=== PATIENT | male | born 1960 | race Caucasian/White ===

== ENCOUNTER 2017-05-08 16:49 | Emergency (ER) | payer BC ==
[2017-05-08] MEDS ORDERED: Sodium Chloride 0.9% 10 ML Syringe FLUSH PRN (16:50)
[2017-05-08] MEDS ORDERED: HYDROmorphone 1 MG/ML Syringe IVPUSH ONE (16:59)
[2017-05-08] MEDS ORDERED: Lactated Ringers 1,000 ML IV SCH (17:00)
--- NOTE | 2017-05-08 17:03 | EDM.PDOC ---
ED HPI GENERAL MEDICAL PROBLEM - General Chief Complaint: Lower Extremity Injury/Pain Stated Complaint: FALL BACK INJURY Time Seen by Provider: 05/08/17 16:50 Source of Information: Reports: Patient, Other (Coworker) History Limitations: Reports: No Limitations - History of Present Illness INITIAL COMMENTS - FREE TEXT/NARRATIVE: The patient was on a ladder working on an electrical wire. He got shocked and fell off of the ladder and landed on his right hip and pelvis. He says he did not hit his head or hurt his neck. He was helped to a pickup truck by his coworker and he was brought in to our garage. I went with the some nurses to help get him out of the pickup. I was helping him get out of the seat. He said he had more pain and then he passed out. We we able to get him on to the cot. He denies a headache, neck pain, chest or abdominal pain. He has pain to the posterior hip and pelvis. He has no numbness or weakness. Onset: Sudden Duration: Minutes: Location: Reports: Back (lower right), Lower Extremity, Right (hip and pelvis) Quality: Reports: Sharp Severity: Severe Improves with: Reports: Immobilization Worsens with: Reports: Movement Context: Reports: Trauma (He got shocked by a wire and fell off a ladder) Associated Symptoms: Reports: No Other Symptoms right buttock/hip Pain Score (Numeric/FACES): 2 - Related Data Allergies Allergy/AdvReac Type Severity Reaction Status Date / Time Penicillins Allergy Anaphylactic Verified 05/08/17 16:58 Shock Home Meds: Home Meds Melatonin 5 mg PO BEDTIME 05/08/17 [History] Rosuvastatin Calcium [Crestor] 40 mg PO DAILY 05/08/17 [History] Sertraline [Zoloft] 100 mg PO DAILY 05/08/17 [History] Review of Systems - Review of Systems Review Of Systems: See Below Constitutional: Reports: No Symptoms Eyes: Reports: No Symptoms Ears: Reports: No Symptoms Nose: Reports: No Symptoms Respiratory: Reports: No Symptoms Cardiovascular: Reports: Syncope GI/Abdominal: Reports: No Symptoms Genitourinary: Reports: No Symptoms Musculoskeletal: Reports: Other (Right hip, low back and pelvic pain) Skin: Reports: No Symptoms Neurological: Reports: No Symptoms ED EXAM, GENERAL - Physical Exam Exam: See Below Exam Limited By: No Limitations General Appearance: Alert, No Apparent Distress Ears: Normal External Exam Nose: Normal Inspection Head: Atraumatic, Normocephalic Neck: Normal Inspection Respiratory/Chest: No Respiratory Distress, Lungs Clear, Normal Breath Sounds Cardiovascular: Regular Rate, Rhythm, No Edema, No Murmur GI/Abdominal: Soft, Non-Tender, No Organomegaly, No Mass Back Exam: Other (Pain upon palpation to the right lower back) Extremities: Other (Right hip and pelvic pain upon palpation. Good sensation and pulses distally. Edema to the right hip and buttock. The patient has bilateral decreased pulses to both legs. I had to use a doplar to get pulses in her feet. Capillary refill is 5 seconds. He has decreased sensation to some toes in the right foot. He says this is an old injury.) EKG INTERPRETATION EKG Date: 05/08/17 Time: 17:11 Rhythm: NSR Rate (Beats/Min): 73 [place]: Normal P-Wave: Present QRS: Normal ST-T: Normal QT: Normal Course - Vital Signs Last Recorded V/S: Last Vital Signs Temp 96 F 05/08/17 16:49 Pulse 75 05/08/17 16:49 Resp 18 05/08/17 16:49 BP 148/85 H 05/08/17 16:49 Pulse Ox 95 05/08/17 16:49 - Orders/Labs/Meds Orders: Active Orders 24 hr Category Date Time Status Cardiac Monitoring [RC] . DIRECTED Care 05/08/17 16:50 Active EKG Documentation Completion [RC] STAT Care 05/08/17 16:52 Active Peripheral IV Care [RC] . DIRECTED Care 05/08/17 16:52 Active Abdomen Pelvis w Cont [CT] Stat Exams 05/08/17 16:53 Taken Chest 1V Frontal [CR] Stat Exams 05/08/17 16:52 Taken Head wo Cont [CT] Stat Exams 05/08/17 16:59 Taken Lumbar Spine wo Cont [CT] Stat Exams 05/08/17 16:54 Taken Lactated Ringers [Ringers, Lactated] 1,000 ml Med 05/08/17 17:00 Active IV ASDIRECTED Sodium Chloride 0.9% [Saline Flush] Med 05/08/17 16:50 Active 10 ml FLUSH ASDIRECTED PRN Peripheral IV Insertion Adult [OM.PC] Stat Oth 05/08/17 16:50 Ordered Medication Orders Lactated Ringer's (Ringers, Lactated) 1,000 mls @ 125 mls/hr IV ASDIRECTED [place] Last Admin: 05/08/17 17:05 Dose: 125 mls/hr Sodium Chloride (Saline Flush) 10 ml FLUSH ASDIRECTED PRN PRN Reason: Keep Vein Open Last Admin: 05/08/17 17:05 Dose: 10 ml Labs: Laboratory Tests 05/08/17 05/08/17 05/08/17 Range/Units 16:50 17:19 18:49 WBC 9.72 H (4.23-9.07) K/mm3 RBC 4.33 L (4.63-6.08) M/mm3 Hgb 12.9 L (13.7-17.5) gm/L Hct 38.4 L (40.1-51.0) % MCV 88.7 (79.0-92.2) fl MCH 29.8 (25.7-32.2) pg MCHC 33.6 (32.2-35.5) g/dl RDW Std Deviation 41.7 (35.1-43.9) fL Plt Count 267 (163-337) K/mm3 MPV 10.6 (9.4-12.3) fl Neut % (Auto) 73.9 H (34.0-67.9) % Lymph % (Auto) 16.5 L (21.8-53.1) % [place] % (Auto) 7.2 (5.3-12.2) % Eos % (Auto) 1.5 (0.8-7.0) Baso % (Auto) 0.6 (0.1-1.2) % Neut # (Auto) 7.18 H (1.78-5.38) K/mm3 Lymph # (Auto) 1.60 (1.32-3.57) K/mm3 [place] # (Auto) 0.70 (0.30-0.82) K/mm3 Eos # (Auto) 0.15 (0.04-0.54) K/mm3 Baso # (Auto) 0.06 (0.01-0.08) K/mm3 Sodium 140 (136-145) mEq/L Potassium 3.5 (3.5-5.1) mEq/L Chloride 104 (98-107) mEq/L Carbon Dioxide 24 (21-32) mEq/L Anion Gap 15.5 H (5-15) BUN 19 H (7-18) mg/dL Creatinine 1.1 (0.7-1.3) mg/dL Est Cr Clr Drug Dosing 82.72 mL/min Estimated GFR (MDRD) > 60 (>60) mL/min BUN/Creatinine Ratio 17.3 (14-18) Glucose 115 H (74-106) mg/dL Calcium 8.5 (8.5-10.1) mg/dL Total Bilirubin 0.3 (0.2-1.0) mg/dL AST 52 H (15-37) U/L ALT 65 H (16-63) U/L Alkaline Phosphatase 54 (46-116) U/L Troponin I < 0.017 (0.00-0.056) ng/mL Total Protein 6.6 (6.4-8.2) g/dl Albumin 3.5 (3.4-5.0) g/dl Globulin 3.1 gm/dL Albumin/Globulin Ratio 1.1 (1-2) Urine Color Yellow (Yellow) Urine Appearance Clear (Clear) Urine pH 5.5 (5.0-8.0) Ur Specific [place] 1.010 (1.005-1.030) Urine Protein Negative (Negative) Urine Glucose (UA) Negative (Negative) Urine Ketones Negative (Negative) Urine Occult Blood Trace-lysed H (Negative) Urine Nitrite Negative (Negative) Urine Bilirubin Negative (Negative) Urine Urobilinogen 0.2 (0.2-1.0) Ur Leukocyte Esterase Negative (Negative) Urine RBC 0-5 (0-5) /hpf Urine WBC 0-5 (0-5) /hpf Ur Epithelial Cells 0-5 (0-5) /hpf Urine Bacteria Few (FEW) /hpf Fine Granular Casts 0-5 (0-5) /lpf Urine Mucus Few (FEW) /hpf Ethyl Alcohol 0.03 (0.00) gm% Meds: Medications Generic Name Dose Route Start Last Admin Trade Name Freq PRN Reason Stop Dose Admin Lactated Ringer's 1,000 mls @ 125 mls/hr 05/08/17 17:00 05/08/17 17:05 Ringers, Lactated IV 125 mls/hr ASDIRECTED [place] Administration Sodium Chloride 10 ml 05/08/17 16:50 05/08/17 17:05 Saline Flush FLUSH 10 ml ASDIRECTED PRN Administration Keep Vein Open Discontinued Medications Generic Name Dose Route Start Last Admin Trade Name Jewelq PRN Reason Stop Dose Admin Hydromorphone HCl 1 mg 05/08/17 16:59 05/08/17 17:05 Dilaudid IVPUSH 05/08/17 17:00 1 mg ONETIME ONE Administration Iopamidol 100 ml 05/08/17 17:41 05/08/17 17:45 Isovue-300 (61%) IVPUSH 05/08/17 17:42 100 ml ONETIME ONE Administration Sodium Chloride 10 ml 05/08/17 17:41 05/08/17 17:45 Saline Flush FLUSH 05/08/17 17:42 10 ml ONETIME ONE Administration - Re-Assessments/Exams Free Text/Narrative Re-Assessment/Exam: 05/08/17 17:05 I ordered an IV LR at 125mL/hr, dilaudid IV, labs, CXR and a CT of his lumbar spine, abdomen, pelvis and head. I will also get an EKG and have him on the claim rep because he did get electrocuted. 05/08/17 19:02 His EKG shows a NSR with no acute changes. His CXR shows nothing acute. His WBC was elevated at 9.72. His Hgb was elevated at 12.9. His AST and ALT are elevated at 52 and 65 respectively. His troponin is negative. His ETOH was slightly elevated at 0.03. The CT of his head shows nonspecific fluid within the ethmoid and frontal sinuses. No acute intracranial hemorrhage. The CT fo his lumber spine shows mild compression of the L1 vertebrae and and right transverse process fracture at L1. Bilateral L5 spondylolysis with associated L5/s1 shunt disease. Deep left pelvic sidewall hematoma, incompletely evaluated. The CT of his abdomen and pelvis shows extraperitoneal fluid within the space of [place] on the left without clear pelvic fracture. This raises concern for extraperitoneal bladder or urethral injury. Mild compression fracture of the L1 vertebral body and right transverse fracture at L1. AV shunting within the liver and associated transient hepatic attenuation difference. 1.8 x 1.7cm abdomen enhancing lesion in the left hepatic lobe which could represent a flash filled hemangioma however consider elective triphasic CT or MRI to better evaluate these findings. The patient did urinate for me. I will look at the UA. I have also ordered a delayed CT of the pelvis to see if any contrast has leaked from the bladder. 05/08/17 19:[address] or the pelvis with delayed images shows a small focus of extavasation of contrast in the prostate on the left raising concern for injury to the prostatic urethra. I feel he needs to be transferred to [place] where they have a urologist. I called [facility] and talked with Dr Cyr and he accepted the patient. I also talked with the urologist and he thought he may have to put a catheter in tonight. I will transfer him by ambulance. Departure - Departure Time of Disposition: 20:20 Disposition: DC/Tfer to [facility] 02 Clinical Impression: Injury of prostatic urethra Fall Qualifiers: Encounter type: initial encounter Qualified Code(s): W19.XXXA - Unspecified fall, initial encounter Contusion of right hip Qualifiers: Encounter type: initial encounter Qualified Code(s): S70.01XA - Contusion of right hip, initial encounter Contusion, buttock Qualifiers: Encounter type: initial encounter Qualified Code(s): S30.0XXA - Contusion of lower back and pelvis, initial encounter Compression fracture of L1 lumbar vertebra Qualifiers: Encounter type: initial encounter Fracture type: closed Qualified Code(s): S32.010A - Wedge compression fracture of first lumbar vertebra, initial encounter for closed fracture Lumbar transverse process fracture Qualifiers: Encounter type: initial encounter Fracture type: closed Qualified Code(s): S32.009A - Unspecified fracture of unspecified lumbar vertebra, initial encounter for closed fracture Electric shock Qualifiers: Encounter type: initial encounter Qualified Code(s): T75.4XXA - Electrocution, initial encounter - Discharge Information Referrals: PCP,Unknown [Ordering Only Provider] - Forms: ED Department Discharge - My Orders Last 24 Hours: My Active Orders 05/08/17 16:50 Cardiac Monitoring [RC] . DIRECTED Sodium Chloride 0.9% [Saline Flush] 10 ml FLUSH ASDIRECTED PRN Peripheral IV Insertion Adult [OM.PC] Stat 05/08/17 16:52 EKG Documentation Completion [RC] STAT Peripheral IV Care [RC] . DIRECTED Chest 1V Frontal [CR] Stat 05/08/17 16:53 Abdomen Pelvis w Cont [CT] Stat 05/08/17 16:54 Lumbar Spine wo Cont [CT] Stat 05/08/17 16:59 Head wo Cont [CT] Stat 05/08/17 17:00 Lactated Ringers [Ringers, Lactated] 1,000 ml IV ASDIRECTED - Assessment/Plan Last 24 Hours: My Active Orders 05/08/17 16:50 Cardiac Monitoring [RC] . DIRECTED Sodium Chloride 0.9% [Saline Flush] 10 ml FLUSH ASDIRECTED PRN Peripheral IV Insertion Adult [OM.PC] Stat 05/08/17 16:52 EKG Documentation Completion [RC] STAT Peripheral IV Care [RC] . DIRECTED Chest 1V Frontal [CR] Stat 05/08/17 16:53 Abdomen Pelvis w Cont [CT] Stat 05/08/17 16:54 Lumbar Spine wo Cont [CT] Stat 05/08/17 16:59 Head wo Cont [CT] Stat 05/08/17 17:00 Lactated Ringers [Ringers, Lactated] 1,000 ml IV ASDIRECTED
[2017-05-08] MEDS ORDERED: Sodium Chloride 0.9% 10 ML Syringe FLUSH ONE (17:41)
[2017-05-08] MEDS ORDERED: Iopamidol 612 MG/ML 100 ML Bottle IVPUSH ONE (17:41)
--- NOTE | 2017-05-10 09:23 | CT ---
CT lumbar spine Technique: Multiple axial sections were obtained from the bottom of T6 inferiorly through the sacrum. Reconstructed sagittal and coronal images were reviewed. Findings: L1-L2: Mild wedging of the superior endplate of L1 is seen which appears to be acute. Fracture involves the superior endplate. Fracture does not extend to the posterior vertebral line or into the posterior elements. No additional fracture is seen. Scattered degenerative change within the spine is seen most severe at L5-S1 with severe disc space narrowing and vacuum phenomena and endplate sclerosis. Bilateral spondylolytic defects at L5-S1 causes spondylolisthesis by about 5-6 mm. Impression: 1. Superior endplate compression fracture within L1. Fracture does not extend into the posterior elements or posterior vertebral line. 2. Degenerative change as noted above. Diagnostic code #5 I agree with preliminary report issued by [facility] ([facility] report finalized on 05/08/17, 7:05 PM Central Time)
--- NOTE | 2017-05-10 09:23 | CT ---
CT abdomen and pelvis Technique: Multiple axial sections were obtained from above the dome of the diaphragm inferiorly to the pubic symphysis. Intravenous contrast was utilized. No oral contrast has been given. Delayed images were also obtained through the abdomen and pelvis as well as delayed images through the pelvis at 1 hour. Comparison: No previous CT abdomen or pelvis exam. Findings: There is an area of hyperintense enhancement being seen within the right lobe of the liver. This is likely normal variant. Liver shows mild fatty infiltration. No other focal abnormality is seen within the liver. Spleen appears within normal limits. Adrenal glands show no nodule. Pancreas is within normal limits. Gallbladder contains no calcified gallstones. Kidneys show symmetric contrast enhancement without hydronephrosis or mass. Aorta shows no aneurysmal dilatation. No retroperitoneal adenopathy or mesenteric abnormalities are seen. Soft tissue density is seen within the lower pelvis compatible with hematoma. This appears along the left side of the lower bladder and left side of the prostate gland. Several prostrate calcifications are seen. Delayed images at one hour show slight contrast extravasation to the left side of the prostate gland adjacent to the calcifications. This finding is suggestive of prostatic urethral injury. No other areas of extravasation are seen on delayed images. Contrast within both ureters is seen which appears normal. Bone window settings were reviewed which show superior endplate compression fracture within L1. Degenerative change is seen at L5-S1 with chronic spondylolytic defects. No fracture identified within the pubic rami. No pelvis fracture is seen. Impression: 1. Soft tissue density around the lower bladder floor and prostate gland on the left side which is compatible with hematoma. 2. Small amount of apparent contrast extravasation to the left side of the prostate gland seen on one hour delayed images. Findings are suspicious for injury of the prostatic urethra. 3. Mild compression fracture involving the superior L1 vertebral body. 4. Hyperenhancing area within the right lobe of the liver which is most likely a normal variant. Fatty infiltration seen within the liver. Diagnostic code #5 I agree with preliminary report issued by [facility] ([facility] report finalized on 05/08/17, 7:23 PM Central Time)
--- NOTE | 2017-05-10 09:23 | CT ---
Head CT Technique: Multiple axial sections through the brain were obtained. Intravenous contrast was not utilized. Comparison: Prior MRI brain of 04/28/13 is available. Findings: Ventricles along with basal cisterns and sulci over the convexities are within normal limits. No abnormal parenchymal densities are seen. No evidence of intracranial hemorrhage. No midline shift or mass effect is seen. Bone window settings were reviewed which show mild mucosal thickening within the frontal and ethmoid sinuses. Minimal mucosal thickening is seen within the left maxillary sinus. No acute calvarial abnormality is seen. Impression: 1. Sinus disease which is felt to be pre-existing and incidental. 2. No acute intracranial abnormality is identified. Diagnostic code #2 I agree with preliminary report issued by [facility] ([facility] report finalized on 05/08/17, 7:05 PM Central Time)
--- NOTE | 2017-05-10 09:23 | CR ---
Chest: Portable view of the chest was obtained. Comparison: No prior study. Heart size and mediastinum are normal. Lungs are clear. Bony structures are grossly intact. Impression: 1. Nothing acute is identified on portable chest x-ray. Diagnostic code #1
== END 2017-05-08 20:43 ==
LOC: JD.ED 16:49
DX: S32.010A Wedge compression fracture of first lumbar vertebra, initial encounter for closed fracture (principal); S32.019A Unspecified fracture of first lumbar vertebra, initial encounter for closed fracture; S37.30XA Unspecified injury of urethra, initial encounter; S70.01XA Contusion of right hip, initial encounter; S30.0XXA Contusion of lower back and pelvis, initial encounter; Z88.0 Allergy status to penicillin; Z79.899 Other long term (current) drug therapy; W86.8XXA Exposure to other electric current, initial encounter; W11.XXXA Fall on and from ladder, initial encounter
CPT/HCPCS: 36415; 70450; 71010; 72131; 74177; 80053; 81001; 84484; 85025; 93005; 96361; 96374; 99285; G0480; J1170; J7050; J7120; Q9967; 99284

== ENCOUNTER 2017-05-13 08:20 | Emergency (ER) | payer BC ==
--- NOTE | 2017-05-13 09:06 | EDM.PDOC ---
ED HPI GENERAL MEDICAL PROBLEM - General Chief Complaint: Genitourinary Problem Stated Complaint: CATHETER PAIN Time Seen by Provider: 05/13/17 08:40 Source of Information: Reports: Patient, Family History Limitations: Reports: No Limitations - History of Present Illness INITIAL COMMENTS - FREE TEXT/NARRATIVE: The patient presents with pain from his hu catheter. The patient was seen here on the 08 of May for a fall that resulted in no pelvic fracture but he did have a tear of the urethra at the level of the prostate. He was sent to [facility] for further care. A hu catheter was inserted by the urologist cotton classer aide Dr Flores. He was discharged yesterday. He had no problems with the catheter until he was getting ready to leave and his nurse had to put a leg bag on. He started having pain in his penis and deeper inside. He has continued to have pain. He is still having good drainage of urine. There has been some dried blood at the urethral meatus. He has no fever or chills. Onset: Gradual Duration: Day(s): (Yesterday) Location: Reports: Other (Penis and pelvis) Quality: Reports: Sharp Severity: Moderate Improves with: Reports: None Worsens with: Reports: Movement Context: Reports: Trauma (Fell off of the ladder) Associated Symptoms: Reports: No Other Symptoms Penis Pain Score (Numeric/FACES): 5 - Related Data Allergies Allergy/AdvReac Type Severity Reaction Status Date / Time Penicillins Allergy Anaphylactic Verified 05/13/17 08:39 Shock Home Meds: Home Meds Melatonin 5 mg PO BEDTIME 05/08/17 [History] Rosuvastatin Calcium [Crestor] 40 mg PO DAILY 05/08/17 [History] Sertraline [Zoloft] 100 mg PO DAILY 05/08/17 [History] Phenazopyridine [Pyridium] 100 mg PO TID PRN #6 tablet 05/13/17 [Rx] Past Medical History HEENT History: Reports: Impaired Vision Cardiovascular History: Reports: High Cholesterol Psychiatric History: Reports: Panic Attack - Past Surgical History Musculoskeletal Surgical History: Reports: Ganglion Cyst Social & Family History - Family History Family Medical History: Noncontributory - Tobacco Use Smoking Status *Q: Former Smoker Used Tobacco, but Quit: Yes Month Tobacco Last Used: unknown Second Hand Smoke Exposure: No - Caffeine Use Caffeine Use: Reports: Coffee - Recreational Drug Use Recreational Drug Use: No ED ROS GENERAL - Review of Systems Review Of Systems: See Below Constitutional: Reports: No Symptoms HEENT: Reports: No Symptoms Respiratory: Reports: No Symptoms Cardiovascular: Reports: No Symptoms Endocrine: Reports: No Symptoms GI/Abdominal: Reports: No Symptoms : Reports: Other (Hu cath in place with pain) Musculoskeletal: Reports: No Symptoms ED EXAM, RENAL/ - Physical Exam Exam: See Below Exam Limited By: No Limitations General Appearance: Alert, No Apparent Distress Ears: Normal External Exam Nose: Normal Inspection Head: Atraumatic, Normocephalic Neck: Normal Inspection Respiratory/Chest: No Respiratory Distress GI/Abdominal: Soft, Non-Tender, No Organomegaly, No Mass (Male) Exam: Other (Hu cath in place with some dried blood at the end of his penis. Good flow of urine.) Course - Vital Signs Last Recorded V/S: Last Vital Signs Temp 97.6 F 05/13/17 08:33 Pulse 67 05/13/17 08:33 Resp 12 05/13/17 08:33 BP 147/85 H 05/13/17 08:33 Pulse Ox 100 05/13/17 08:33 - Orders/Labs/Meds Orders: Active Orders 24 hr Category Date Time Status CULTURE URINE [RM] Stat Lab 05/13/17 09:00 Received Labs: Laboratory Tests 05/13/17 Range/Units 09:00 Urine Color Dark yellow (Yellow) Urine Appearance Clear (Clear) Urine pH 7.0 (5.0-8.0) Ur Specific [place] 1.020 (1.005-1.030) Urine Protein Trace H (Negative) Urine Glucose (UA) Negative (Negative) Urine Ketones Negative (Negative) Urine Occult Blood 2+ H (Negative) Urine Nitrite Negative (Negative) Urine Bilirubin Negative (Negative) Urine Urobilinogen 2.0 H (0.2-1.0) Ur Leukocyte Esterase 1+ H (Negative) Urine RBC 0-5 (0-5) /hpf Urine WBC 0-5 (0-5) /hpf Ur Epithelial Cells Not seen (0-5) /hpf Urine Bacteria Not seen (FEW) /hpf Urine Mucus Few (FEW) /hpf Urinalysis Comment See note - Re-Assessments/Exams Free Text/Narrative Re-Assessment/Exam: 05/13/17 09:10 It appears the catheter was not secured well to his leg. [place] was pulling on the catheter. I deflated the balloon and advanced the catheter. That did not change the pain. I called Dr Fong who is on for urology and he recommended using antibiotic ointment on the head of his penis and some pyridium. He also wanted a UA to be done. I went back to talk to the patient and his pain was better. 05/13/17 10:24 His UA shows no UTI. I will culture it to be sure. Departure - Departure Time of Disposition: 10:25 Disposition: Home, Self-Care 01 Condition: Good Clinical Impression: Hu catheter problem Qualifiers: Encounter type: initial encounter Qualified Code(s): T83.9XXA - Unspecified complication of genitourinary prosthetic device, implant and graft, initial encounter - Discharge Information Prescriptions: Phenazopyridine [Pyridium] 100 mg PO TID PRN #6 tablet PRN Reason: Pain Referrals: Jailene Evans, GERIATRIC NURSE [Primary Care Provider] - Forms: ED Department Discharge Additional Instructions: Take the pyridium 3 times per day as needed for any bladder spasms. Follow up with your doctor as scheduled. - My Orders Last 24 Hours: My Active Orders 05/13/17 09:00 CULTURE URINE [RM] Stat - Assessment/Plan Last 24 Hours: My Active Orders 05/13/17 09:00 CULTURE URINE [RM] Stat
== END 2017-05-13 10:54 | disposition home or self-care (01) ==
LOC: JD.ED 08:20
DX: T83.9XXA Unspecified complication of genitourinary prosthetic device, implant and graft, initial encounter (principal); E78.00 Pure hypercholesterolemia, unspecified; Z87.891 Personal history of nicotine dependence; Z79.899 Other long term (current) drug therapy; Z88.0 Allergy status to penicillin
CPT/HCPCS: 81001; 87086; 99283

== ENCOUNTER 2019-02-01 07:26 | Day surgery (SDC) | payer BC ==
[~2019-02-01 07:26] MED LIST: Lactated Ringers 1,000 ML IV SCH; Lidocaine 1%/Sod Bicarbonate in NS 8.4% 1 ML Syringe IDERM PRN; Sodium Chloride 0.9% 10 ML Syringe FLUSH PRN
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
[2019-02-01] MEDS ORDERED: Lidocaine 1% 4 ML ONE (08:33)
[2019-02-01] MEDS ORDERED: Propofol 200 MG/20 ML SDV ONE ×2 (08:33→08:59)
[2019-02-01] MEDS ORDERED: Midazolam 1 MG/ML 2 ML SDV ONE (08:33)
[2019-02-01] MEDS ORDERED: fentaNYL 100 MCG/2 ML SDV ONE (08:33)
--- NOTE | 2019-02-01 09:16 | PCM48HPAN ---
Post Anesthesia Note - EVALUATION WITHIN 48HRS OF ANESTHETIC Vital Signs in Normal Range: Yes Patient Participated in Evaluation: Yes Respiratory Function Stable: Yes Airway Patent: Yes Cardiovascular Function Stable: Yes Hydration Status Stable: Yes Pain Control Satisfactory: Yes Nausea and Vomiting Control Satisfactory: Yes Mental Status Recovered: Yes Vital Signs: Last Vital Signs Temp 97.6 F 02/01/19 07:35 Pulse 71 02/01/19 07:35 Resp 16 02/01/19 07:35 BP 138/82 02/01/19 07:35 Pulse Ox 97 02/01/19 07:35 02/01/19 110/81 93% 68 16 97.9
--- NOTE | 2019-02-01 12:57 | OR ---
DATE OF OPERATION: 02/01/2019 SURGEON: Guanakito Moses MD PREOPERATIVE DIAGNOSIS: Colorectal cancer screening. POSTOPERATIVE DIAGNOSIS: 1. Colorectal cancer screening. 2. Colon polyps. OPERATION PERFORMED: Screening colonoscopy and polypectomy x4. ANESTHESIA: MAC. FINDINGS: He had 4 polyps, 3 in the rectum and 1 in the ascending colon. All of these were removed in their entirety with a biopsy forceps. He had no diverticulosis, and he had an excellent bowel prep. PATHOLOGY: 1. Ascending colon polyp. 2. Rectal polyp x3. DISPOSITION: Stable at the end of the procedure. INDICATION: The patient is a 58-year-old male, about 11 years out from his last colonoscopy. He had a single hyperplastic polyp removed. He was offered a screening colonoscopy. He was fully informed of the major risks, benefits, and alternatives. The risks include, but are not limited to perforation of the colon, bleeding, the risks of anesthesia, and the possibility of further surgery. He gave informed consent of what was done. DESCRIPTION OF PROCEDURE: The patient was brought to the gastro suite and placed in the left lateral decubitus position. He was given monitored anesthesia. A digital rectal exam was performed showing some quiescent hemorrhoidal disease. I introduced the colonoscope into the rectum with copious lubrication. I advanced the scope keeping the lumen in view at all times with gentle forward pressure. I documented the cecum photographically. I slowly investigated the mucosa of the colon from the cecum back to the anus in an exam lasting 15 minutes. I identified a subcentimeter adenomatous polyp in the ascending colon. This was removed in its entirety with several bites of a biopsy forceps. Further exploration demonstrated 3 additional polyps in the rectum. These were also removed completely with a biopsy forceps. The remainder of his exam was unremarkable. At the end of the procedure, the scope was withdrawn. The air was evacuated on the way out. He had no complications and tolerated the procedure well. PLAN: He will need another colonoscopy in 3 years based on my findings today. However, if this changes based on the pathology, my office will notify him one way or the other. ESTIMATED BLOOD LOSS: MMODAL /[id number]
== END 2019-02-01 09:42 | disposition home or self-care (01) ==
LOC: JD.SDS 07:26
PROVIDERS: ATTEND Surgery
DX: Z12.11 Encounter for screening for malignant neoplasm of colon (principal); D12.2 Benign neoplasm of ascending colon; D12.8 Benign neoplasm of rectum; E78.00 Pure hypercholesterolemia, unspecified; F41.9 Anxiety disorder, unspecified; M51.36 Other intervertebral disc degeneration, lumbar region; Z88.0 Allergy status to penicillin; Z86.010 Personal history of colon polyps; Z79.899 Other long term (current) drug therapy
CPT/HCPCS: 45380; J2001; J2250; J2704; J3010; J7120

== ENCOUNTER 2023-05-05 04:41 | Emergency (ER) | payer BC ==
[2023-05-05] MEDS ORDERED: Sodium Chloride 0.9% 10 ML Syringe FLUSH PRN (05:20)
[2023-05-05 05:41] LABS: BASOPHILS ABSOLUTE AUTO 0.1 K/mm3 (0.0-0.2); BASOPHILS PERCENT AUTO 1.1 % (0.0-1.0); EOSINOPHILS ABSOLUTE AUTO 0.3 K/mm3 (0.0-0.4); EOSINOPHILS PERCENT AUTO 4.9 % (0.0-6.0); HEMATOCRIT 39.2 % (42.0-52.0); HEMOGLOBIN 13.3 gm/dl (14.0-18.0); IMMATURE GRAN ABSOLUTE AUTO 0.02 K/mm3 (0.00-0.05); IMMATURE GRAN PERCENT AUTO 0.3 % (0.0-0.4); LYMPHOCYTES ABSOLUTE AUTO 1.5 K/mm3 (1.0-4.8); LYMPHOCYTES PERCENT AUTO 23.5 % (24.0-44.0); MEAN CORPUSCULAR HGB CONC 33.9 g/dl (32.0-36.0); MEAN CORPUSCULAR VOLUME 88.3 fl (83.0-99.0); MEAN PLATELET VOLUME 10.4 fl (9.4-12.4); MONOCYTES ABSOLUTE AUTO 0.6 K/mm3 (0.0-0.8); MONOCYTES PERCENT AUTO 9.6 % (0.0-8.0); NEUTROPHILS ABSOLUTE AUTO 3.9 K/mm3 (1.8-7.7); NEUTROPHILS PERCENT AUTO 60.6 % (41.0-71.0); PLATELET COUNT,PLT 223 K/mm3 (150-400); RED BLOOD CELL COUNT 4.44 M/mm3 (4.52-5.90); WHITE BLOOD CELL COUNT,WBC 6.48 K/mm3 (3.9-11.3)
[2023-05-05] MEDS ORDERED: Iopamidol 612 MG/ML 100 ML Bottle IVPUSH ONE (05:51)
[2023-05-05 05:58] LABS: PROTHROMBIN TIME 9.8 SECONDS (9.7-12.0)
[2023-05-05 06:00] LABS: PTT,PARTIAL THROMBOPLSTIN TIME 25.2 SECONDS (21.7-31.4)
[2023-05-05 06:09] LABS: A/G RATIO 0.9 (1-2); ALANINE AMINOTRANSFERASE,ALT 36 U/L (16-63); ALBUMIN 3.4 g/dl (3.4-5.0); ALKALINE PHOSPHATASE 47 U/L (46-116); ANION GAP 11.3 (5-15); ASPARTATE AMNIOTRANSFERASE,AST 24 U/L (15-37); BILIRUBIN TOTAL 0.4 mg/dL (0.2-1.0); BLOOD UREA NITROGEN,BUN 25 mg/dL (7-18); BUN/CREATININE RATIO 19.2 (14-18); CALCIUM 8.7 mg/dL (8.5-10.1); CARBON DIOXIDE,CO2 29 mEq/L (21-32); CHLORIDE,CL 101 mEq/L (98-107); CREATININE 1.3 mg/dL (0.7-1.3); ESTIMATED GFR 61 mL/min (>60); GLUCOSE RANDOM 106 mg/dL (70-99); INR < 0.93; POTASSIUM,K 4.3 mEq/L (3.5-5.1); SODIUM,NA 137 mEq/L (136-145)
== END 2023-05-05 07:10 | disposition home or self-care (01) ==
LOC: JD.ED 04:41
DX: S30.1XXA Contusion of abdominal wall, initial encounter (principal); E78.00 Pure hypercholesterolemia, unspecified; E66.9 Obesity, unspecified; Z68.41 Body mass index [BMI] 40.0-44.9, adult; Z88.0 Allergy status to penicillin; W22.8XXA Striking against or struck by other objects, initial encounter
CPT/HCPCS: 36415; 74177; 80053; 85025; 85610; 85730; 99284; Q9967